=== PATIENT | female | born 1985 | race Caucasian/White ===

== ENCOUNTER 2017-05-09 18:00 | Emergency (ER) | payer MEDICAID ==
[~2017-05-09] VITALS: Ht 162.6 cm; Wt 74.4 kg
[~2017-05-09 18:00] MED LIST: ALBUTEROL2.5 MG/3 M HHN; ALEVE220 M2 PO; IBUPROFEN600 M1 PO; KEFLEX500 MG ORAL; NAPROXEN500 M2 ORAL; NKM; NORCO 5-325 TA1 EACH ORAL; PHENAZOPYRIDIN100 MG ORAL; ROBAXIN-750750 MG PO; TAMIFLU75 MG ORAL; TYLENOL325 MG ORAL
--- NOTE | 2017-05-09 18:41 | Emergency Room Report ---
History of Present Illness General Chief Complaint: Complications Source: Patient, Family Member Present Illness HPI 31-year-old female walks in with abdominal cramps for one to 2 days. No associated vaginal bleeding or passing of clot. Patient states she is , states she is really not sure how far along she is. She states her LMP was January 31 but that the last period She definitely missed was March. States one week ago she was at [facility] an ultrasound showed "no heart rate " and that "the baby was not growing." sHe states she had blood tests done Sunday and today, but unsure of what her beta hCG is. Patient had 3 children previously, no miscarriages, ectopics or spontaneous abortions previously. Allergies: Coded Allergies: No Known Allergies (Verified Allergy, Unknown, 01/06/06) Patient History Past Medical History: none Past Surgical History: none Pertinent Family History: none Social History: Denies: smoking, alcohol use, drug use Now: No : 4 Para: 3 Reviewed Nursing Documentation: PMH: Agreed, PSxH: Agreed Nursing Documentation-PMH Hx Asthma: Yes - Pneumonia Review of Systems All Other Systems: negative except mentioned in HPI Physical Exam Vital Signs Date Time Temp Pulse Resp B/P (MAP) Pulse Ox O2 Delivery O2 Flow Rate FiO2 05/09/17 18:05 98.1 80 20 128/79 99 Room Air Sp02 EP Interpretation: reviewed, normal General Appearance: normal inspection, well appearing, no apparent distress, alert, GCS 15, non-toxic Head: normocephalic, atraumatic Eyes: bilateral eye PERRL, bilateral eye EOMI ENT: normal ENT inspection, hearing grossly normal, normal pharynx, no angioedema, normal voice, TMs + canals normal, uvula midline, moist mucus membranes Neck: normal inspection, full range of motion, supple, thyroid normal, no meningismus, no bony tend Respiratory: normal inspection, lungs clear, normal breath sounds, no rhonchi, no respiratory distress, no retraction, no accessory muscle use, no wheezing, speaking full sentences Cardiovascular #1: regular rate, rhythm, no edema, no JVD, normal capillary refill Gastrointestinal: normal inspection, normal bowel sounds, non tender, soft, no mass, no peritonitis, non-distended, no guarding, no hernia, no pulsatile mass Genitourinary: no CVA tenderness, other - Bedside sono: ?GS with pole Musculoskeletal: normal inspection, back normal, normal range of motion, no calf tenderness, pelvis stable, Ke's Sign negative Neurologic: normal inspection, alert, oriented x3, responsive, concreter III-XII nml as tested, motor strength/tone normal, cerebellar normal, normal gait, speech normal Psychiatric: normal inspection, judgement/insight normal, mood/affect normal, no suicidal/homicidal ideation, no delusions Skin: normal inspection, normal color, no rash Lymphatic: normal inspection, no adenopathy Medical Decision Making Diagnostic Impression: Primary Impression: demise Additional Impression: Incomplete ER Course VSS, afebrile No active bleeding now Rh+ on previous labs shown to me by patient Beta quant is 19k here - unknown what previous was Report from tech on sono: GS, pole but no FHR Consistent with patient's story from 2 weeks ago of sono with no movement Likely demise Patient to followup with Ob TOMORROW for ?D&C, further evaluation Was given copy of labs, sono results She understands to return to nearest ER for severe abd pain, vaginal bleeding ER course: Patient has remained stable during ED stay. Disposition: Patient is to be discharged to home. Patient is instructed to follow up with their OB TOMORROW Strict return precautions discussed with patient such as fever, chills, worsening/severe pain, nausea, vomiting, which may indicate severe illness. Patient verbalizes understanding and agrees with plan. Please note that this Emergency Department Report was dictated using [employer] engineer manager technology software, occasionally this can lead to erroneous entry secondary to interpretation by the dictation equipment Last Vital Signs Date Time Temp Pulse Resp B/P (MAP) Pulse Ox O2 Delivery O2 Flow Rate FiO2 05/09/17 18:05 98.1 80 20 128/79 99 Room Air Status: improved Disposition: HOME, SELF-CARE VIANNEY SRIVASTAVA M.D. May 09, 2017 18:41
[2017-05-09 19:08] LABS: APPEARANCE,URINE CLEAR; BILIRUBIN, URINE NEGATIVE (NEGATIVE); GLUCOSE, URINE (UA) NEGATIVE (NEGATIVE); KETONES,URINE NEGATIVE (NEGATIVE); LEUKOCYTE ESTERASE ,URINE 1+ (NEGATIVE); NITRITE,URINE NEGATIVE (NEGATIVE); PH,URINE 6 (4.5-8.0); PROTEIN,URINE NEGATIVE (NEGATIVE); UROBILINOGEN,URINE 1 MG/DL (0.0-1.0)
[2017-05-09 19:15] LABS: COLOR,URINE YELLOW
[2017-05-09 21:35] VITALS: BP 128/79
--- NOTE | 2017-05-10 10:47 | Diagnostic Imaging Report ---
Indication: Pain in . Beta-hCG 37602 Technique: Grayscale and duplex Doppler imaging of the pelvis performed utilizing a transabdominal scan and endovaginal scan. Comparison: None Findings: Intrauterine gestational sac noted. A pole is identified. [place]-rump length less than 7 mm. heart rate not definitively noted at this time. Gestational age by ultrasound of approximately 5.5 to 6 weeks. No adnexal mass lesion seen. Bilateral color flow noted to the ovaries; no evidence to suggest ovarian torsion at this time. No free pelvic fluid. Impression: Intrauterine gestational sac with identifiable pole. No heart tones/ heart rate seen at this time. Findings may be related to early . Failed not entirely excluded. Correlation with trended beta-hCG and short-term interval follow-up ultrasound recommended until diagnosis made. CORONER/MEDICAL EXAMINER followup recommended.
== END 2017-05-09 21:35 | disposition home or self-care (01) ==
LOC: EMR 19:08
DX: O02.1 Missed abortion (principal)
CPT/HCPCS: 36415; 76801; 76830; 81003; 84702; 99284

== ENCOUNTER 2018-01-08 20:28 | Emergency (ER) | payer MEDICAID, OTHER ==
[~2018-01-08] VITALS: Ht 162.6 cm; Wt 69.4 kg
[2018-01-08 20:51] VITALS: BP 116/73
[2018-01-08] MEDS ORDERED: Ketorolac 30mg Inj IV ONE (21:15)
[2018-01-08 21:22] LABS: BASOPHILS % (AUTO) 1.3 % (0.0-2.0); EOSINOPHILS % (AUTO) 3.5 % (0.0-3.0); HEMATOCRIT 41.1 % (37.0-47.0); HEMOGLOBIN 14.6 G/DL (12.0-16.0); LYMPHOCYTES % (AUTO) 23.6 % (20.0-45.0); MEAN CORPUSCULAR VOLUME 96 FL (80-99); MONOCYTES % (AUTO) 11.3 % (1.0-10.0); NEUTROPHILS % (AUTO) 60.4 % (45.0-75.0); PLATELET COUNT 230 K/UL (150-450); RED BLOOD COUNT 4.31 M/UL (4.20-5.40); RED CELL DISTRIBUTION WIDTH 11.4 % (11.6-14.8); WHITE BLOOD COUNT 7.4 K/UL (4.8-10.8)
[2018-01-08 21:22] LABS: APPEARANCE,URINE CLEAR; BILIRUBIN, URINE NEGATIVE (NEGATIVE); GLUCOSE, URINE (UA) NEGATIVE (NEGATIVE); KETONES,URINE NEGATIVE (NEGATIVE); LEUKOCYTE ESTERASE ,URINE NEGATIVE (NEGATIVE); NITRITE,URINE NEGATIVE (NEGATIVE); PH,URINE 5 (4.5-8.0); PROTEIN,URINE NEGATIVE (NEGATIVE); UROBILINOGEN,URINE NORMAL MG/DL (0.0-1.0)
[2018-01-08 21:24] LABS: COLOR,URINE YELLOW
[2018-01-08] MEDS ORDERED: IBUPROFEN600 MG ORAL (21:25)
--- NOTE | 2018-01-08 21:25 | Emergency Room Report ---
History of Present Illness General Chief Complaint: General Complaint Source: Patient Present Illness HPI Is a 32-year-old female with no past medical history. She presents with chief complaint abdominal cramping pain and diarrhea. Onset today. Pain started and epigastric area and spread downward. Pain is 7 out of 10. Diarrhea is watery. No nausea no vomiting. No fever chills. Denies any other complaint. Eating made it worse. Holding still makes it better. No urinary complaint. Allergies: Coded Allergies: No Known Allergies (Verified , 01/08/18) Patient History Past Medical History: see triage record, old chart reviewed Past Surgical History: none Pertinent Family History: none Social History: Denies: smoking Last Menstrual Period: Dec 2017 Now: No Immunizations: other Reviewed Nursing Documentation: PMH: Agreed; PSxH: Agreed Nursing Documentation-PM Past Medical History: No History, Except For Hx Cardiac Problems: No - ovary cyst Hx Asthma: Yes - Pneumonia Review of Systems Eye: Denies: eye pain, blurred vision ENT: Denies: ear pain, nose congestion, throat swelling Respiratory: Denies: cough, shortness of breath Cardiovascular: Denies: chest pain, palpitations Gastrointestinal: Reports: abdominal pain, diarrhea; Denies: nausea, vomiting Musculoskeletal: Denies: back pain, joint pain Skin: Denies: rash Neurological: Denies: headache, numbness Endocrine: Denies: increased thirst, increased urine Hematologic/Lymphatic: Denies: easy bruising All Other Systems: negative except mentioned in HPI Physical Exam Vital Signs Date Time Temp Pulse Resp B/P (MAP) Pulse Ox O2 Delivery O2 Flow Rate FiO2 01/08/18 20:38 98.3 72 16 116/73 97 Room Air 98.2 vitals normal Sp02 EP Interpretation: reviewed, normal General Appearance: well appearing, no apparent distress, alert Head: normocephalic, atraumatic Eyes: bilateral eye PERRL, bilateral eye EOMI ENT: hearing grossly normal, normal pharynx Neck: full range of motion, supple, no meningismus Respiratory: chest non-tender, lungs clear, normal breath sounds Cardiovascular #1: regular rate, rhythm, no murmur Gastrointestinal: non tender, no mass, no organomegaly, no bruit, non-distended , abnormal bowel sounds - hyperactive, gurgling Musculoskeletal: back normal, gait/station normal, normal range of motion Psychiatric: mood/affect normal Skin: warm/dry Medical Decision Making Diagnostic Impression: Primary Impression: Abdominal pain, acute, generalized Additional Impression: Diarrhea Qualified Codes: R19.7 - Diarrhea, unspecified ER Course Patient with abdominal cramps with diarrhea. This could be food poisoning versus beginning of a gastroenteritis. No evidence of gallbladder disease. No evidence of obstruction or acute abdomen. My bedside ultrasound showed a normal gallbladder without any Arthur sign. Last Vital Signs Date Time Temp Pulse Resp B/P (MAP) Pulse Ox O2 Delivery O2 Flow Rate FiO2 01/08/18 20:51 98.0 72 16 116/73 97 Room Air 98.0 Status: improved Disposition: HOME, SELF-CARE Condition: Stable Scripts Ibuprofen* (MOTRIN*) 600 Mg Tablet 600 MG ORAL THREE TIMES A DAY, #20 TAB 0 Refills Prov: Uriel Wright MD 01/08/18 Additional Instructions: Follow-up with your DrGrace in 3-5 days if not better. Return if symptom worsen. Uriel Wright MD Jan 08, 2018 21:25
[2018-01-08 21:30] LABS: ANION GAP 10 mmol/L (5-15); BLOOD UREA NITROGEN 15 mg/dL (7-18); CALCIUM 9.1 MG/DL (8.5-10.1); CARBON DIOXIDE 25 MMOL/L (21-32); CHLORIDE 104 MMOL/L (98-107); CREATININE 0.8 MG/DL (0.55-1.30); POTASSIUM 3.8 MMOL/L (3.5-5.1); SODIUM 139 MMOL/L (136-145)
[2018-01-08 21:34] LABS: ALANINE AMINOTRANSFERASE 16 U/L (12-78); ALBUMIN 3.9 G/DL (3.4-5.0); ALKALINE PHOSPHATASE 63 U/L (46-116); ASPARTATE AMINO TRANSFERASE 14 U/L (15-37); BILIRUBIN,TOTAL 0.2 MG/DL (0.2-1.0)
[2018-01-08 21:39] VITALS: BP 116/73
== END 2018-01-08 21:39 | disposition home or self-care (01) ==
LOC: EMR 21:17
DX: R10.84 Generalized abdominal pain (principal); R19.7 Diarrhea, unspecified
CPT/HCPCS: 36415; 80053; 81003; 81025; 83690; 85025; 96374; 99284; J1885

== ENCOUNTER 2018-01-20 06:18 | Emergency (ER) | payer OTHER ==
[~2018-01-20] VITALS: Ht 162.6 cm; Wt 70.3 kg
[~2018-01-20 06:18] MED LIST changes: +IBUPROFEN600 MG ORAL
[2018-01-20 06:40] VITALS: BP 112/77
--- NOTE | 2018-01-20 06:51 | Emergency Room Report ---
History of Present Illness General Chief Complaint: Sore Throat Source: Patient Present Illness HPI Patient presents with 3 days of body aches and sore throat. She was bitten by mosquitoes and felt that might be part of it. She's been taking Tylenol and Motrin. It's been helping with the fever but still has throat pain and aches. She did not get a flu vaccination this year. She doesn't get flu vaccinations. Pain rated 8/10, mainly throat, sharp and burning with swallowing. No nausea vomiting diarrhea dysuria. Her last menstruation was normal. The patient has a history of asthma but has not been wheezing. There is no cough or chest pain. She drank some tequila at a birthday constitution party yesterday. Allergies: Coded Allergies: No Known Allergies (Verified , 01/08/18) Patient History Past Medical History: see triage record Social History: Reports: alcohol use; Denies: smoking Social History Narrative Works for [employer] Last Menstrual Period: 01/14/18 Now: No : 6 Para: 3 Reviewed Nursing Documentation: PMH: Agreed; PSxH: Agreed Nursing Documentation-PMH Hx Cardiac Problems: No - ovary cyst Hx Asthma: Yes Review of Systems All Other Systems: negative except mentioned in HPI Physical Exam Vital Signs Date Time Temp Pulse Resp B/P (MAP) Pulse Ox O2 Delivery O2 Flow Rate FiO2 01/20/18 06:32 98.4 99 16 112/77 97 Room Air 98.4 General Appearance: well appearing, no apparent distress Head: normocephalic, atraumatic ENT: hearing grossly normal, normal voice, pharyngeal erythema, other - neck tenderness Neck: full range of motion, supple Respiratory: lungs clear, no respiratory distress, speaking full sentences Cardiovascular #1: regular rate, rhythm Gastrointestinal: non tender, soft, no mass Genitourinary: no CVA tenderness Musculoskeletal: no calf tenderness Neurologic: alert, oriented x3, normal gait, grossly normal Psychiatric: mood/affect normal Skin: no rash, other - small area of erythema L forearm Medical Decision Making Diagnostic Impression: Primary Impression: Pharyngitis Qualified Codes: J02.9 - Acute pharyngitis, unspecified ER Course Patient presents with sore throat and body aches. Differential includes strep, mononucleosis, viral amongst others. We'll perform a influenza swab and urinalysis with test. The patient be treated with Tylenol, this is lidocaine. Flu neg. Preg neg. Improved with treatment, though states not want viscous lidocaine. Patient stable for outpatient observation and treatment. Last Vital Signs Date Time Temp Pulse Resp B/P (MAP) Pulse Ox O2 Delivery O2 Flow Rate FiO2 01/20/18 08:12 98.4 89 16 127/79 99 Room Air 98.4 Status: improved Disposition: HOME, SELF-CARE Condition: Improved Scripts Acetaminophen (Tylenol) 325 Mg Tablet 650 MG ORAL Q6H PRN for Prn Pain/Headache/Temp > 101, #20 TAB 0 Refills Prov: Storm Hernandez M.D. 01/20/18 Ibuprofen* (MOTRIN*) 600 Mg Tablet 600 MG ORAL Q6H PRN for For Pain, #16 TAB Prov: Storm Hernandez M.D. 01/20/18 Amoxicillin/Potassium Clav 500-125 Tablet* (AUGMENTIN 500-125 TABLET*) 1 Each Tablet 1 TAB ORAL THREE TIMES A DAY, #20 TAB Prov: Storm Hernandez M.D. 01/20/18 Storm Hernandez M.D. Jan 20, 2018 06:51
[2018-01-20] MEDS ORDERED: Lidocaine 2% Visc 15ml soln ORAL ONE (07:00)
[2018-01-20 07:22] LABS: APPEARANCE,URINE CLEAR; BILIRUBIN, URINE NEGATIVE (NEGATIVE); COLOR,URINE PALE YELLOW; GLUCOSE, URINE (UA) NEGATIVE (NEGATIVE); KETONES,URINE NEGATIVE (NEGATIVE); LEUKOCYTE ESTERASE ,URINE 1+ (NEGATIVE); NITRITE,URINE NEGATIVE (NEGATIVE); PH,URINE 7 (4.5-8.0); PROTEIN,URINE 1+ (NEGATIVE); UROBILINOGEN,URINE NORMAL MG/DL (0.0-1.0)
[2018-01-20] MEDS ORDERED: TYLENOL325 MG ORAL (07:58)
[2018-01-20] MEDS ORDERED: AUGMENTIN 500-1 EACH ORAL (07:58)
[2018-01-20] MEDS ORDERED: IBUPROFEN600 MG ORAL (07:58)
[2018-01-20 08:11] VITALS: BP 127/79
[2018-01-20 08:12] VITALS: BP 127/79
== END 2018-01-20 08:12 | disposition home or self-care (01) ==
LOC: EMR 06:45
DX: J02.9 Acute pharyngitis, unspecified (principal); J45.909 Unspecified asthma, uncomplicated; L53.9 Erythematous condition, unspecified
CPT/HCPCS: 81003; 81025; 86710; 99283

== ENCOUNTER 2018-12-03 18:42 | Emergency (ER) | payer SELFPAY ==
[~2018-12-03] VITALS: Ht 162.6 cm; Wt 74.8 kg
[~2018-12-03 18:42] MED LIST changes: +AUGMENTIN 500-1 EACH ORAL
[2018-12-03 19:08] VITALS: BP 102/75
--- NOTE | 2018-12-03 19:53 | Emergency Room Report ---
History of Present Illness General Chief Complaint: Gastrointestinal Bleed Source: Patient Present Illness HPI Disclaimer: Please note that this report is being documented using [employer] technology. This can lead to erroneous entry secondary to incorrect interpretation by the dictating instrument. HPI: This a 33-year-old female at 11 weeks gestation presents for evaluation of abdominal pain vomiting and diarrhea. Symptoms have been present approximately 18 hours. She awoke early this morning with abdominal cramping and had several episodes of emesis. She one time had blood-streaked mucus in the emesis. She denied any brittany hematemesis or any persistent hematemesis this morning or throughout the day. Unable to keep down any solids or liquids today. She notes nonbloody diarrhea as well throughout the day. Reports fatigue but denies any obvious fevers, sweats, chills, chest pain, shortness of breath, cough, dysuria or hematuria. thus far has been uncomplicated. Follows up regularly with [facility]. Denies alcohol or drug use. PMH: Denies PSH: Ovarian cyst removal Allergies: Denies Social Hx: Denies drug alcohol or tobacco use Allergies: Coded Allergies: No Known Allergies (Verified , 01/08/18) Patient History Now: Yes Nursing Documentation-PMH Past Medical History: No History, Except For Hx Cardiac Problems: No - ovary cyst Hx Asthma: Yes Review of Systems All Other Systems: negative except mentioned in HPI Physical Exam Vital Signs Date Time Temp Pulse Resp B/P (MAP) Pulse Ox O2 Delivery O2 Flow Rate FiO2 12/03/18 18:57 98.6 100 17 114/75 (88) 99 Room Air General: Awake and alert, appears fatigued and run down HEENT: NC/AT. EOMI. dry mucous membranes Cardiovascular: RRR. S1 and S2 normal. No murmur appreciated Resp: Normal work of breathing. No cough, wheezing or crackles appreciated Abdomen: Abdomen is soft, nondistended. Nontender. No guarding, no rebound. No masses appreciated. Skin: Intact. No abrasions, laceration or rash over the exposed skin MSK: Normal tone and bulk. Moving all extremities. No obvious deformity. Neuro: Awake and alert. Mentating appropriately. Medical Decision Making Diagnostic Impression: Primary Impression: Abdominal pain affecting Additional Impressions: UTI (urinary tract infection) Vomiting ER Course This a 33-year-old female at 11 weeks gestation presenting for evaluation of nausea, vomiting, diarrhea beginning early this morning. Differential includes was not limited to viral syndrome, GERD, gastroenteritis, cholecystitis, pancreatitis, appendicitis. Will start metabolic and infectious work-up, IV fluids, antiemetics and antacids. Laboratory Tests Test 12/03/18 19:48 White Blood Count 9.1 K/UL (4.8-10.8) Red Blood Count 3.95 M/UL (4.20-5.40) L Hemoglobin 13.1 G/DL (12.0-16.0) Hematocrit 35.4 % (37.0-47.0) L Mean Corpuscular Volume 90 FL (80-99) Mean Corpuscular Hemoglobin 33.1 PG (27.0-31.0) H Mean Corpuscular Hemoglobin Concent 36.9 G/DL (32.0-36.0) H Red Cell Distribution Width 10.9 % (11.6-14.8) L Platelet Count 219 K/UL (150-450) Mean Platelet Volume 6.0 FL (6.5-10.1) L Neutrophils (%) (Auto) 86.7 % (45.0-75.0) H Lymphocytes (%) (Auto) 7.2 % (20.0-45.0) L Monocytes (%) (Auto) 5.3 % (1.0-10.0) Eosinophils (%) (Auto) 0.3 % (0.0-3.0) Basophils (%) (Auto) 0.4 % (0.0-2.0) Urine Color Yellow Urine Appearance Slightly cloudy Urine pH 6 (4.5-8.0) Urine Specific [place] 1.025 (1.005-1.035) Urine Protein 1+ (NEGATIVE) H Urine Glucose (UA) Negative (NEGATIVE) Urine Ketones 4+ (NEGATIVE) H Urine Blood 1+ (NEGATIVE) H Urine Nitrite Negative (NEGATIVE) Urine Bilirubin Negative (NEGATIVE) Urine Urobilinogen 1 MG/DL (0.0-1.0) H Urine Leukocyte Esterase 1+ (NEGATIVE) H Urine RBC 5-10 /HPF (0 - 2) H Urine WBC 2-4 /HPF (0 - 2) Urine Squamous Epithelial Cells Few /LPF (NONE/OCC) Urine Bacteria Moderate /HPF (NONE) H Urine Mucus Moderate /LPF (NONE/OCC) H Sodium Level 139 MMOL/L (136-145) Potassium Level 3.4 MMOL/L (3.5-5.1) L Chloride Level 105 MMOL/L (98-107) Carbon Dioxide Level 21 MMOL/L (21-32) Anion Gap 14 mmol/L (5-15) Blood Urea Nitrogen 7 mg/dL (7-18) Creatinine 0.5 MG/DL (0.55-1.30) L Estimate Glomerular Filtration Rate > 60 mL/min (>60) Glucose Level 112 MG/DL (74-106) H Calcium Level 8.8 MG/DL (8.5-10.1) Total Bilirubin 0.3 MG/DL (0.2-1.0) Aspartate Amino Transferase (AST) 15 U/L (15-37) Alanine Aminotransferase (ALT) 17 U/L (12-78) Alkaline Phosphatase 45 U/L (46-116) L Total Protein 6.9 G/DL (6.4-8.2) Albumin 3.2 G/DL (3.4-5.0) L Globulin 3.7 g/dL Albumin/Globulin Ratio 0.9 (1.0-2.7) L Lipase 111 U/L (73-393) Human Chorionic Gonadotropin, Quant 86849 mIU/mL (1-6) H Last Vital Signs Date Time Temp Pulse Resp B/P (MAP) Pulse Ox O2 Delivery O2 Flow Rate FiO2 12/03/18 18:57 98.6 100 17 114/75 (88) 99 Room Air Status: improved Reevaluation Impression Labs returned largely within normal limits. The patient did receive IV fluids for dehydration as well as Zofran and Pepcid. Her symptoms are now controlled. Leave this is likely the beginnings of a viral illness given her diarrhea and vomiting however her urinalysis also showed bacteria and leukocyte esterase. Given her status she will be treated with Macrobid and follow-up closely with her [facility]. She will be prescribed Zofran to control her symptoms. We discussed reasons to return to the emergency department as well as need for close follow-up. She understands and agrees with this treatment plan will be discharged home. Disposition: HOME, SELF-CARE Condition: Improved Scripts Ondansetron Odt* (ZOFRAN ODT*) 4 Mg Tab.rapdis 4 MG BC EVERY 6 HOURS PRN for Nausea & Vomiting, #20 TAB 0 Refills Prov: Baldev Bee MD 12/03/18 Nitrofurantoin Monohyd/M-Cryst* (MACROBID 100 MG*) 100 Mg Capsule 100 MG ORAL EVERY 12 HOURS for 7 Days, #14 CAP Prov: Baldev Bee MD 12/03/18 Baldev Bee MD Dec 03, 2018 19:53
[2018-12-03 20:03] LABS: APPEARANCE,URINE SLIGHTLY CLOUDY; BILIRUBIN, URINE NEGATIVE (NEGATIVE); GLUCOSE, URINE (UA) NEGATIVE (NEGATIVE); KETONES,URINE 4+ (NEGATIVE); LEUKOCYTE ESTERASE ,URINE 1+ (NEGATIVE); NITRITE,URINE NEGATIVE (NEGATIVE); PH,URINE 6 (4.5-8.0); PROTEIN,URINE 1+ (NEGATIVE); UROBILINOGEN,URINE 1 MG/DL (0.0-1.0)
[2018-12-03 20:04] LABS: HEMATOCRIT 35.4 % (37.0-47.0); HEMOGLOBIN 13.1 G/DL (12.0-16.0); MEAN CORPUSCULAR VOLUME 90 FL (80-99); PLATELET COUNT 219 K/UL (150-450); RED BLOOD COUNT 3.95 M/UL (4.20-5.40); RED CELL DISTRIBUTION WIDTH 10.9 % (11.6-14.8); WHITE BLOOD COUNT 9.1 K/UL (4.8-10.8)
[2018-12-03 20:05] LABS: COLOR,URINE YELLOW
[2018-12-03 20:06] LABS: BASOPHILS % (AUTO) 0.4 % (0.0-2.0); EOSINOPHILS % (AUTO) 0.3 % (0.0-3.0); LYMPHOCYTES % (AUTO) 7.2 % (20.0-45.0); MONOCYTES % (AUTO) 5.3 % (1.0-10.0); NEUTROPHILS % (AUTO) 86.7 % (45.0-75.0)
[2018-12-03 20:15] LABS: ANION GAP 14 mmol/L (5-15); BLOOD UREA NITROGEN 7 mg/dL (7-18); CALCIUM 8.8 MG/DL (8.5-10.1); CARBON DIOXIDE 21 MMOL/L (21-32); CHLORIDE 105 MMOL/L (98-107); CREATININE 0.5 MG/DL (0.55-1.30); POTASSIUM 3.4 MMOL/L (3.5-5.1); SODIUM 139 MMOL/L (136-145)
[2018-12-03 20:24] LABS: ALANINE AMINOTRANSFERASE 17 U/L (12-78); ALBUMIN 3.2 G/DL (3.4-5.0); ALBUMIN/GLOBULIN RATIO 0.9 (1.0-2.7); ALKALINE PHOSPHATASE 45 U/L (46-116); ASPARTATE AMINO TRANSFERASE 15 U/L (15-37); BILIRUBIN,TOTAL 0.3 MG/DL (0.2-1.0)
[2018-12-03 21:11] VITALS: BP 104/76
[2018-12-03] MEDS ORDERED: NITROFURANTOIN100 M2 ORAL (22:14)
[2018-12-03] MEDS ORDERED: ONDANSETRON ODT4 MG BC (22:14)
[2018-12-03 22:27] VITALS: BP 108/70
== END 2018-12-03 22:27 | disposition home or self-care (01) ==
LOC: EMR 19:18
DX: O21.9 Vomiting of pregnancy, unspecified (principal); Z3A.11 11 weeks gestation of pregnancy; O23.41 Unspecified infection of urinary tract in pregnancy, first trimester; J45.909 Unspecified asthma, uncomplicated; O26.891 Other specified pregnancy related conditions, first trimester; R10.9 Unspecified abdominal pain
CPT/HCPCS: 36415; 80053; 81003; 83690; 84702; 85025; 87086; 96361; 96374; 96375; 99284; J2405; S0028

== ENCOUNTER 2019-02-23 17:04 | Emergency (ER) | payer MEDICAID, OTHER ==
[~2019-02-23] VITALS: Ht 162.6 cm; Wt 78.5 kg
[~2019-02-23 17:04] MED LIST changes: +NITROFURANTOIN100 M2 ORAL; +ONDANSETRON ODT4 MG BC
[2019-02-23 17:40] VITALS: BP 107/71
[2019-02-23 18:14] LABS: APPEARANCE,URINE CLOUDY; BILIRUBIN, URINE NEGATIVE (NEGATIVE); GLUCOSE, URINE (UA) 1+ (NEGATIVE); KETONES,URINE 2+ (NEGATIVE); LEUKOCYTE ESTERASE ,URINE 3+ (NEGATIVE); NITRITE,URINE NEGATIVE (NEGATIVE); PH,URINE 5 (4.5-8.0); PROTEIN,URINE 2+ (NEGATIVE); UROBILINOGEN,URINE 1 MG/DL (0.0-1.0)
[2019-02-23 18:16] LABS: COLOR,URINE YELLOW
[2019-02-23 18:59] LABS: BASOPHILS % (AUTO) 0.6 % (0.0-2.0); EOSINOPHILS % (AUTO) 2.1 % (0.0-3.0); HEMATOCRIT 35.7 % (37.0-47.0); HEMOGLOBIN 12.5 G/DL (12.0-16.0); LYMPHOCYTES % (AUTO) 12.8 % (20.0-45.0); MEAN CORPUSCULAR VOLUME 96 FL (80-99); MONOCYTES % (AUTO) 6.4 % (1.0-10.0); NEUTROPHILS % (AUTO) 78.2 % (45.0-75.0); PLATELET COUNT 238 K/UL (150-450); RED BLOOD COUNT 3.72 M/UL (4.20-5.40); RED CELL DISTRIBUTION WIDTH 12.2 % (11.6-14.8); WHITE BLOOD COUNT 10.7 K/UL (4.8-10.8)
[2019-02-23] MEDS ORDERED: Azithromycin 250mg tab ORAL ONE (19:00)
[2019-02-23] MEDS ORDERED: Lidocaine 1% MPF 10mg/ml 5ml INJ ONE (19:00)
[2019-02-23 19:19] LABS: ANION GAP 7 mmol/L (5-15); BLOOD UREA NITROGEN 11 mg/dL (7-18); CALCIUM 8.5 MG/DL (8.5-10.1); CARBON DIOXIDE 25 MMOL/L (21-32); CHLORIDE 105 MMOL/L (98-107); CREATININE 0.7 MG/DL (0.55-1.30); POTASSIUM 3.3 MMOL/L (3.5-5.1); SODIUM 137 MMOL/L (136-145)
[2019-02-23 19:25] LABS: ALANINE AMINOTRANSFERASE 26 U/L (12-78); ALBUMIN 3.2 G/DL (3.4-5.0); ALBUMIN/GLOBULIN RATIO 0.8 (1.0-2.7); ALKALINE PHOSPHATASE 67 U/L (46-116); ASPARTATE AMINO TRANSFERASE 20 U/L (15-37); BILIRUBIN,TOTAL 0.2 MG/DL (0.2-1.0)
--- NOTE | 2019-02-23 20:08 | Diagnostic Imaging Report ---
Indication: 33-year-old female presenting with the pelvic pain Technique: Grayscale and duplex Doppler imaging of the pelvis performed utilizing a transabdominal scan and endovaginal scan. Comparison: None Findings: Single living IUP demonstrated. Presentation is currently breech. heart tones demonstrated. Gestational age based on sonographic criteria is 25 weeks zero days. Full anatomic assessment of the fetus was not performed on this exam. Suggest a follow-up in this regard such as a level 2 ultrasound. Amniotic fluid is normal. The cervix is closed and has a measurement of about 5 cm in length. The placenta is posterior. KRYSTINA is normal at 18.2 cm. (2.78, 6.86, 6.23, 2.35). measurements are as follows: Head circumference 22.01 cm, 24 weeks. Abdominal circumference 20.6 cm, 25 weeks one day. Femur length 4.09 cm, 23 weeks 2 days. Maternal ovaries identified showing dopplerable blood flow bilaterally. The right ovary is 2.5 x 1.3 x 2 cm. Left ovary 2.1 x 2.0 x 1.8 cm. IMPRESSION: Single living IUP 24 weeks one day based on sonographic criteria. Breech presentation. Normal KRYSTINA. Posterior placenta. Note: A negative ultrasound evaluation does not insure well-being or positive outcome for the . monitoring including a nonstress test may be needed and clinical evaluation by [facility] is highly recommended.
--- NOTE | 2019-02-23 20:08 | Emergency Room Report ---
History of Present Illness General Chief Complaint: Vaginal Source: Patient (Aleksander Lares) Present Illness HPI 33-year-old female who is A1 and 6 months here complaining of 1 week of yellow vaginal discharge and pruritus in the vaginal area. Patient denies any vaginal bleeding, clotting, spotting at this time. Does report that 2 days ago had a sharp right lower abdominal pain that started at work rating it 7 out of 10 however has been gone since Sunday. Denies any pain radiation, urinary frequency and urgency. Reports that she was last sexually active with a new partner with unknown sexually transmitted diseases status 1 week ago and reports that since then has been having this yellow and white vaginal discharge with pruritus. Denies fever and chills, shortness of breath, chest pain, palpitation, headache and dizziness. Reports that last [employer] visit was 2 weeks ago and regular. Is compliant with taking her vitamins. Does agree to be prophylactically treated for chlamydia and gonorrhea. Patient is sitting comfortably in no apparent distress, with stable vital signs. (Aleksander Lares) Allergies: Coded Allergies: No Known Allergies (Verified , 01/08/18) Patient History Past Medical History: see triage record Past Surgical History: unable to obtain Pertinent Family History: none Now: Yes - 6 MONTHS : 4 Immunizations: UTD Reviewed Nursing Documentation: PMH: Agreed; PSxH: Agreed (Aleksander Lares) Nursing Documentation-PMH Past Medical History: No History, Except For Hx Cardiac Problems: No - ovary cyst Hx Asthma: Yes (Aleksander Lares) Review of Systems All Other Systems: negative except mentioned in HPI (Aleksander Lares) Physical Exam Vital Signs Date Time Temp Pulse Resp B/P (MAP) Pulse Ox O2 Delivery O2 Flow Rate FiO2 02/23/19 17:18 98.2 91 16 107/71 (83) 97 Room Air Sp02 EP Interpretation: reviewed, normal General Appearance: no apparent distress, alert, GCS 15, non-toxic Head: normocephalic, atraumatic Eyes: bilateral eye normal inspection, bilateral eye PERRL ENT: hearing grossly normal, normal pharynx, no angioedema, normal voice Neck: full range of motion, supple/symm/no masses Respiratory: chest non-tender, lungs clear, normal breath sounds, no rhonchi, no respiratory distress, no retraction, no wheezing, speaking full sentences Cardiovascular #1: regular rate, rhythm, no edema, no murmur, normal capillary refill Gastrointestinal: normal bowel sounds, non tender, no organomegaly, no peritonitis, no bruit, no guarding, no hernia, no pulsatile mass, no rebound, distended - gravid Rectal: deferred Genitourinary: normal inspection, no CVA tenderness, ext genitalia/vag normal Musculoskeletal: back normal, normal range of motion, no calf tenderness, pelvis stable, gait/station normal, non-tender Neurologic: alert, motor strength/tone normal, oriented x3, sensory intact, responsive, speech normal Psychiatric: judgement/insight normal, memory normal, mood/affect normal, no suicidal/homicidal ideation Skin: no rash Lymphatic: no adenopathy (Aleksander Lares) Medical Decision Making PA Attestation All diagnoses and treatment plans were reviewed and discussed with my supervising physician Dr. Hernandez (Aleksander Lares) Diagnostic Impression: Primary Impression: Vaginitis affecting in second trimester, antepartum Additional Impression: Abdominal pain affecting ER Course 33-year-old female who is A1 and 6 months here complaining of 1 week of yellow vaginal discharge and pruritus in the vaginal area. Patient denies any vaginal bleeding, clotting, spotting at this time. Does report that 2 days ago had a sharp right lower abdominal pain that started at work rating it 7 out of 10 however has been gone since Sunday. Denies any pain radiation, urinary frequency and urgency. Reports that she was last sexually active with a new partner with unknown sexually transmitted diseases status 1 week ago and reports that since then has been having this yellow and white vaginal discharge with pruritus. Denies fever and chills, shortness of breath, chest pain, palpitation, headache and dizziness. Reports that last [employer] visit was 2 weeks ago and regular. Is compliant with taking her vitamins. Does agree to be prophylactically treated for chlamydia and gonorrhea. Patient is sitting comfortably in no apparent distress, with stable vital signs. Ddx considered but are not limited to: appendicitis, cholecystis, threatened , spontaneous , ectopic , abdominal pain during , chlamydia, gonorrhea, trichomoniasis, bacterial vaginosis, yeast infection Vital signs: are WNL, pt. is afebrile H&PE are most consistent with: Vaginitis during affecting , abdominal pain affecting ORDERS: CBC, CMP, UA, type UA, beta-hCG, OB ultrasound, wet mount, GC and Chlamydia, Monistat ED INTERVENTIONS: Rocephin, azithromycin DISCHARGE: At this time pt. is stable for d/c to home. Will provide printed patient care instructions, and any necessary prescriptions. Care plan and follow up instructions have been discussed with the patient prior to discharge. Patient agrees to be prophylactically treated for chlamydia and gonorrhea and understand that if positive it is best to be treated due to status. Since one mount is negative for clue cells and trichomoniasis and only positive for yeast infection. Patient to be treated with Monistat as Diflucan is contraindicated during . Also advised patient to follow-up with OB/ [facility] within the next 24 to 48 hours for repeat of ultrasound and beta-hCG also return to the emergency room sooner if any new onset of symptoms, vaginal bleeding, abdominal cramping. (Aleksander Lares) CT/MRI/US Diagnostic Results CT/MRI/US Diagnostic Results : Imaging Test Ordered: OB ultrasound Impression IMPRESSION: Single-live intrauterine with EGA of 24 weeks 1 day by sonographic dating. Correlate with prior dating. The placenta is posterior. The amniotic fluid index is within normal limits. The cervix is long and closed. (Aleksander Lares) Last Vital Signs Date Time Temp Pulse Resp B/P (MAP) Pulse Ox O2 Delivery O2 Flow Rate FiO2 02/23/19 17:40 98.2 16 107/71 97 Room Air 02/23/19 17:18 91 (Aleksander Lares) Disposition: HOME, SELF-CARE Condition: Stable Scripts Miconazole Nitrate (Monistat 1) 1 Each Kit 1 EACH VG QHS for 7 Days, #1 PACK Prov: Aleksander Lares 02/23/19 Referrals: NON PHYSICIAN (PCP) Patient Instructions: Abdominal Pain During , Vaginitis, [id number] Additional Instructions: Take medication as directed, follow-up with your primary care provider for repeat of ultrasound if worsening symptoms return to the emergency room Aleksander Lares Feb 23, 2019 20:08 Storm Hernandez MD Feb 24, 2019 04:30
[2019-02-23] MEDS ORDERED: MONISTAT 11 EACH VG (20:10)
[2019-02-23 20:35] VITALS: BP 107/71
== END 2019-02-23 20:35 | disposition home or self-care (01) ==
LOC: EMR 17:39
DX: O23.592 Infection of other part of genital tract in pregnancy, second trimester (principal); N76.0 Acute vaginitis; R10.9 Unspecified abdominal pain
CPT/HCPCS: 36415; 76805; 80053; 81003; 84702; 85025; 87086; 87210; 87491; 87590; 96374; J0696; Q0144; Z7502; 99284

== ENCOUNTER 2019-03-26 15:28 | Emergency (ER) | payer MEDICAID ==
[~2019-03-26] VITALS: Ht 162.6 cm; Wt 78.5 kg
[~2019-03-26 15:28] MED LIST changes: +MONISTAT 11 EACH VG
[2019-03-26 16:18] VITALS: BP 121/61
--- NOTE | 2019-03-26 16:20 | NUR ---
ED Nurse Note:pt. came with flu like symptoms also she is no abdominal pain reported
[2019-03-26 16:28] LABS: APPEARANCE,URINE CLEAR; BILIRUBIN, URINE NEGATIVE (NEGATIVE); COLOR,URINE PALE YELLOW; GLUCOSE, URINE (UA) NEGATIVE (NEGATIVE); KETONES,URINE NEGATIVE (NEGATIVE); LEUKOCYTE ESTERASE ,URINE 1+ (NEGATIVE); NITRITE,URINE NEGATIVE (NEGATIVE); PH,URINE 6.5 (4.5-8.0); PROTEIN,URINE NEGATIVE (NEGATIVE); UROBILINOGEN,URINE NORMAL MG/DL (0.0-1.0)
--- NOTE | 2019-03-26 17:02 | Emergency Room Report ---
History of Present Illness General Chief Complaint: Flu Like Symptoms Source: Patient, Medical Record Present Illness HPI 33-year-old male with no significant past medical history who is 28 weeks here complaining of 1 week of cough and congestion. Denies fever and chills at this time however complains of a 10 out of 10 sore throat x1 week. Has not taken medication for symptom relief. Denies any urinary symptoms, abdominal pain, cramping, vaginal spotting or bleeding. Reports that she last saw her [facility]YS [facility] 2 days ago and was given Monistat and metronidazole cream for bacterial vaginosis and yeast infection. Reports that has not yet started taking them. Denies any discomfort of the abdomen. Had ultrasound done recently. Denies tobacco smoke, marijuana use. Denies chest pain, palpitation , headache and dizziness at this time. Allergies: Coded Allergies: No Known Allergies (Verified , 01/08/18) Patient History Past Medical History: see triage record Past Surgical History: unable to obtain Pertinent Family History: none Last Menstrual Period: 08/2018 Now: Yes - 25 weeks : 6 Para: 3 Immunizations: UTD Reviewed Nursing Documentation: PMH: Agreed; PSxH: Agreed Nursing Documentation-PMH Hx Cardiac Problems: No - ovary cyst Hx Asthma: Yes Review of Systems All Other Systems: negative except mentioned in HPI Physical Exam Vital Signs Date Time Temp Pulse Resp B/P (MAP) Pulse Ox O2 Delivery O2 Flow Rate FiO2 03/26/19 15:46 99.5 109 18 121/61 (81) 97 Room Air Sp02 EP Interpretation: reviewed, normal General Appearance: no apparent distress, alert, GCS 15, non-toxic Head: normocephalic, atraumatic Eyes: bilateral eye normal inspection, bilateral eye PERRL ENT: EOM grossly intact, no angioedema, TMs + canals normal, moist mucus membranes, nasal congestion, tonsillar exudate Neck: thyroid normal, no meningismus, no bony tend, no carotid bruits, other - Anterior cervical lymphadenopathy Respiratory: chest non-tender, lungs clear, normal breath sounds, no rhonchi, no retraction, no wheezing, speaking full sentences Cardiovascular #1: regular rate, rhythm, no edema, no murmur, normal capillary refill Gastrointestinal: non tender, soft Rectal: deferred Genitourinary: no CVA tenderness Musculoskeletal: back normal, no calf tenderness Neurologic: alert, motor strength/tone normal, oriented x3, sensory intact, responsive, speech normal Psychiatric: judgement/insight normal, memory normal, mood/affect normal, no suicidal/homicidal ideation Skin: no rash Lymphatic: adenopathy - Anterior cervical Medical Decision Making PA Attestation All my diagnosis and treatment plans were reviewed ad discussed with my supervising physician Dr. Zaragoza Diagnostic Impression: Primary Impression: Strep pharyngitis ER Course 33-year-old male with no significant past medical history who is 28 weeks here complaining of 1 week of cough and congestion. Denies fever and chills at this time however complains of a 10 out of 10 sore throat x1 week. Has not taken medication for symptom relief. Denies any urinary symptoms, abdominal pain, cramping, vaginal spotting or bleeding. Reports that she last saw her PHYS TH[facility] 2 days ago and was given Monistat and metronidazole cream for bacterial vaginosis and yeast infection. Reports that has not yet started taking them. Denies any discomfort of the abdomen. Had ultrasound done recently. Denies tobacco smoke, marijuana use. Denies chest pain, palpitation , headache and dizziness at this time. Ddx considered but are not limited to: strep pharyngitis, URI, tonsillitis, peritonsillar abscess, influenza Vital signs: are WNL, pt. is afebrile H&PE are most consistent with: Strep pharyngitis ORDERS: Amoxicillin, guaifenesin, Flonase nasal spray, UA ED INTERVENTIONS: None required at this time. DISCHARGE: At this time pt. is stable for d/c to home. Will provide printed patient care instructions, and any necessary prescriptions. Care plan and follow up instructions have been discussed with the patient prior to discharge. At this time no further imaging or blood work needed regarding patient's as patient was recently here and was evaluated patient is not having any vaginal bleeding or spotting, discharge, abdominal pain or cramping and had a recent visit to [facility]YS [facility] 2 days ago. Advised patient to follow-up with OB in 24 -48 hours Last Vital Signs Date Time Temp Pulse Resp B/P (MAP) Pulse Ox O2 Delivery O2 Flow Rate FiO2 03/26/19 16:18 105 18 Room Air 03/26/19 16:18 99.5 121/61 97 Disposition: HOME, SELF-CARE Condition: Stable Scripts Guaifenesin* (GUAIFENESIN) 100 Mg/5 Ml Liquid 5 ML ORAL Q6H, #120 ML 0 Refills Prov: Aleksander Lares 03/26/19 Fluticasone Propionate (Flonase Allergy Relief) 9.9 Ml [place].susp 2 PUFF NS BID, #10 ML Prov: Aleksander Lares 03/26/19 Amoxicillin* (AMOXIL*) 500 Mg Capsule 500 MG ORAL EVERY 12 HOURS for 10 Days, #20 CAP Prov: Aleksander Lares 03/26/19 Referrals: NON PHYSICIAN (PCP) Patient Instructions: Strep Throat, [id number] Additional Instructions: Take medication as directed, follow-up with your primary care provider, if worsening symptoms return to the emergency room. Aleksander Lares Mar 26, 2019 17:02
[2019-03-26] MEDS ORDERED: AMOXICILLIN500 MG ORAL (17:04)
[2019-03-26] MEDS ORDERED: FLONASE ALLERG9.9 ML NS (17:04)
[2019-03-26] MEDS ORDERED: GUAIFENESI100 MG/5 M ORAL (17:04)
[2019-03-26 17:10] VITALS: BP 129/65
--- NOTE | 2019-03-26 17:10 | NUR ---
ED Nurse Note: Pt cleared by health care Provider for discharge. Patient accompanied by . DC instructions/prescription was given and explained to pt and verbalized understanding of teachings. All medical deviecs such as ID band removed. Pt is AAO x4, ambulatory and left with all personal belongings.
== END 2019-03-26 17:10 | disposition home or self-care (01) ==
LOC: EMR 16:14
DX: O26.93 Pregnancy related conditions, unspecified, third trimester (principal); Z3A.28 28 weeks gestation of pregnancy; J02.0 Streptococcal pharyngitis
CPT/HCPCS: 81003; Z7502; 99282